=== PATIENT | male | born 1970 | race Caucasian/White ===

== ENCOUNTER 2021-04-12 12:32 | Inpatient (IN) ==
[2021-04-12] MEDS ORDERED: DILTIAZEM 100 MG VIAL.ADD IV ONE (12:49)
[2021-04-12] MEDS ORDERED: DILTIAZEM 50 MG/10 ML VIAL IV STA (12:52)
[2021-04-12] MEDS: DILTIAZEM INJ 100 MG in SODIUM CHLORIDE 0.9% 100 ML IV SCH ×2 (13:20→19:35)
[2021-04-12 13:55] LABS: Basophils % 0.4 % (0.0-0.8); Eosinophils # 0.3 10*3/uL (0.0-0.87); Eosinophils % 2.9 % (0.00-10.9); Hematocrit 45.4 VOL% (42.0-52.0); Hemoglobin 15.4 GM/DL (14.0-18.0); Immature Granulocytes % 0.8 %; Immature Granulocytes Absolute 0.08 #; Lymphocytes # 3.2 10*3/uL (1.4-4.0); Lymphocytes % 30.5 % (21.2-54.2); Mean Corpuscular HGB Conc 33.9 GM/DL (32-36); Mean Corpuscular Volume 88.5 FL (87-102); Monocytes % 10.3 % (1.7-12.7); Neutrophils % 55.1 % (38.7-73.9); Platelet Count 336 T/CUMM (130-400); Red Blood Count 5.13 MC/CUMM (3.8-5.5); Red Cell Distribution Width 13.5 % (9.3-17.3); White Blood Count 10.6 T/CUMM (4-12)
[2021-04-12 14:04] LABS: INR 0.9; PT Patient Result 10.7 SECS (10.5-12.0)
[2021-04-12 14:27] LABS: Albumin 3.7 G/DL (3.4-5.0); Bilirubin,Total 0.4 MG/DL (0.20-1.00); Calcium 10.3 MG/DL (8.5-10.1); Osmolality,Calculated 281.7 MOS/KG (273-304); Potassium 3.6 MMOL/L (3.5-5.1); Thyroid Stimulating Hormone 3.64 uIU/ml (0.358-3.74); Total Protein 7.1 G/DL (6.4-8.2)
[2021-04-12] MEDS ORDERED: METOPROLOL TARTRATE 5 MG/5 ML VIAL IV STA (14:31)
[2021-04-12 15:23] LABS: Barbiturates Screen,Urine Negative (Negative); Benzodiazepines Screen,Urine Negative (Negative); Cannabinoid Screen,Urine Negative (Negative); Opiate Screen,Urine Negative (Negative); Phencyclidine Screen,Urine Negative (Negative)
[2021-04-12] MEDS ORDERED: DOCUSATE SODIUM 100 MG CAPSULE PO PRN (15:38)
[2021-04-12] MEDS ORDERED: SIMETHICONE CHEW 125 MG TABLET PO PRN (15:38)
[2021-04-12] MEDS ORDERED: ACETAMINOPHEN 325 MG TABLET PO PRN (15:38)
[2021-04-12] MEDS ORDERED: CALCIUM CARBONATE CHEW 500 MG TABLET PO PRN (15:38)
[2021-04-12] MEDS ORDERED: GLUCAGON 1 MG VIAL IM PRN (15:38)
[2021-04-12] MEDS ORDERED: ONDANSETRON 4 MG/2 ML VIAL IV PRN (15:38)
[2021-04-12] MEDS ORDERED: DEXTROSE 50% 25 GM/50 ML SYRINGE IV PRN (16:20)
[2021-04-12] MEDS: PANTOPRAZOLE 40 MG TABLET PO SCH (17:23)
[2021-04-12] MEDS: ENOXAPARIN 150 MG/ML SYRINGE SUBCUT SCH (17:23)
[2021-04-12] MEDS: LACTATED RINGERS 1,000 ML IV SCH (17:23)
[2021-04-12] MEDS ORDERED: INFLUENZA VIRUS VACCINE 0.5 ML SYRINGE IM ONE (21:00)
[2021-04-13] MEDS: ENOXAPARIN 150 MG/ML SYRINGE SUBCUT SCH (05:01)
[2021-04-13] MEDS: LACTATED RINGERS 1,000 ML IV SCH ×2 (05:23→10:13)
[2021-04-13 05:34] LABS: Basophils % 0.4 % (0.0-0.8); Eosinophils # 0.3 10*3/uL (0.0-0.87); Eosinophils % 3.1 % (0.00-10.9); Hematocrit 42.3 VOL% (42.0-52.0); Hemoglobin 14.2 GM/DL (14.0-18.0); Immature Granulocytes % 0.9 %; Immature Granulocytes Absolute 0.09 #; Lymphocytes # 3.5 10*3/uL (1.4-4.0); Lymphocytes % 33.1 % (21.2-54.2); Mean Corpuscular HGB Conc 33.6 GM/DL (32-36); Mean Corpuscular Volume 90.6 FL (87-102); Mean Platelet Volume 9.3 FL (9.6-12.0); Monocytes % 9.7 % (1.7-12.7); Neutrophils % 52.8 % (38.7-73.9); Platelet Count 312 T/CUMM (130-400); Red Blood Count 4.67 MC/CUMM (3.8-5.5); Red Cell Distribution Width 13.8 % (9.3-17.3); White Blood Count 10.6 T/CUMM (4-12)
[2021-04-13 05:55] LABS: Albumin 3.1 G/DL (3.4-5.0); Bilirubin,Total 0.8 MG/DL (0.20-1.00); Calcium 10.3 MG/DL (8.5-10.1); Osmolality,Calculated 284.3 MOS/KG (273-304); Potassium 3.1 MMOL/L (3.5-5.1); Risk Ratio 6.24; Total Protein 6.7 G/DL (6.4-8.2)
[2021-04-13 06:34] LABS: Hepatitis B Core IgM Quant 0.15 Index; Hepatitis B Surface Ag Quant < 0.10 Index; Hepatitis B Surface Ag Result Non-Reactive (NonReactive); Hepatitis C Virus Ab Quant 0.04 Index; Hepatitis C Virus Ab Result Non-Reactive (NonReactive)
[2021-04-13] MEDS ORDERED: ASCORBIC ACID 500 MG TABLET PO SCH (09:00)
[2021-04-13] MEDS ORDERED: ASPIRIN EC 81 MG TABLET PO SCH (09:00)
[2021-04-13] MEDS: PANTOPRAZOLE 40 MG TABLET PO SCH (09:22)
[2021-04-13] MEDS: POTASSIUM CHLORIDE 20 MEQ TABLET PO PRN ×4 (09:22→16:25)
[2021-04-13] MEDS ORDERED: METOPROLOL SUCCINATE XL 25 MG TABLET PO SCH (10:00)
[2021-04-13 16:24] VITALS: BP 122/65
[2021-04-13] MEDS ORDERED: INFLUENZA VIRUS VACCINE 0.5 ML SYRINGE IM ONE (17:00)
[2021-04-13] MEDS ORDERED: APIXABAN 5 MG TABLET PO SCH (21:00)
== END 2021-04-13 19:28 | disposition home or self-care (01) | DRG 309 ==
LOC: EDUNIT# → EDBD → N.ED 12:32 → N.EDINP 15:38 → SUATTDRO 15:38 → N.TELES 18:09
PROVIDERS: ADMIT Internal Medicine; ATTEND Emergency Medicine

== ENCOUNTER 2022-04-25 21:21 | Observation (INO) ==
[2022-04-25] MEDS ORDERED: ACETAMINOPHEN 325 MG TABLET PO PRN (22:04)
[2022-04-25] MEDS ORDERED: ONDANSETRON 4 MG/2 ML VIAL IV PRN (22:04)
[2022-04-25] MEDS ORDERED: INFLUENZA VIRUS VACCINE 0.5 ML SYRINGE IM ONE (22:15)
[2022-04-25] MEDS ORDERED: PNEUMOCOCCAL VACCINE (13 VALENT) 0.5 ML SYRINGE IM ONE (22:15)
[2022-04-25] MEDS ORDERED: MAGNESIUM SULF RIDER 2 GM/50 ML PREMIX IV ONE (23:13)
[2022-04-25] MEDS: APIXABAN 5 MG TABLET PO SCH (23:13)
[2022-04-25] MEDS: gemfibroziL 600 MG TABLET PO SCH (23:13)
[2022-04-26 06:02] LABS: Basophils % 0.5 % (0.0-0.8); Eosinophils # 0.3 10*3/uL (0.0-0.87); Eosinophils % 4.8 % (0.00-10.9); Hematocrit 28.6 VOL% (42.0-52.0); Hemoglobin 9.6 GM/DL (14.0-18.0); Immature Granulocytes % 1.5 %; Immature Granulocytes Absolute 0.09 #; Lymphocytes # 2.2 10*3/uL (1.4-4.0); Lymphocytes % 38.3 % (21.2-54.2); Mean Corpuscular HGB Conc 33.6 GM/DL (32-36); Mean Platelet Volume 8.5 FL (9.6-12.0); Monocytes # 0.7 10*3/uL (0.11-0.8); Monocytes % 11.7 % (1.7-12.7); Neutrophils % 43.2 % (38.7-73.9); Platelet Count 222 T/CUMM (130-400); Red Blood Count 2.89 MC/CUMM (3.8-5.5); Red Cell Distribution Width 13.3 % (9.3-17.3); White Blood Count 5.8 T/CUMM (4-12)
[2022-04-26 06:17] LABS: Albumin 3.6 G/DL (3.4-5.0); Bilirubin,Total 0.9 MG/DL (0.20-1.00); Calcium 9.5 MG/DL (8.5-10.1); Osmolality,Calculated 275.8 MOS/KG (273-304); Potassium 3.6 MMOL/L (3.5-5.1); Risk Ratio 5.04; Total Protein 7.5 G/DL (6.4-8.2)
[2022-04-26] MEDS ORDERED: METOPROLOL SUCCINATE XL 25 MG TABLET PO SCH (09:00)
[2022-04-26] MEDS ORDERED: LOSARTAN/HCTZ 50-12.5 MG TABLET PO SCH (09:00)
[2022-04-26] MEDS ORDERED: PANTOPRAZOLE 40 MG TABLET PO SCH (09:00)
[2022-04-26] MEDS ORDERED: ASPIRIN EC 81 MG TABLET PO SCH (09:00)
[2022-04-26] MEDS ORDERED: allopurinoL 100 MG TABLET PO SCH (09:00)
[2022-04-26] MEDS: gemfibroziL 600 MG TABLET PO SCH (09:35)
[2022-04-26] MEDS: APIXABAN 5 MG TABLET PO SCH (09:35)
[2022-04-26 11:51] LABS: % Iron Saturation 43.6 % (18-50); Ferritin 665.7 ng/mL (26-388)
[2022-04-26 12:02] LABS: Folate 11.31 NG/ML (5.38-24.0)
[2022-04-26 13:27] VITALS: BP 149/70
== END 2022-04-26 14:12 | disposition home or self-care (01) ==
LOC: INTOOBSV 21:24 → N.TELES 21:24 → SUATTDRO 21:24
PROVIDERS: ADMIT Internal Medicine; ATTEND Internal Medicine